=== PATIENT | male | born 1955 | race Two or more races ===

== ENCOUNTER → 2017-04-18 | Day surgery (SDC) | payer OTHER ==
[2017-04-18 13:05] VITALS: BP 165/96
== END ==
LOC: SDC 11:58
DX: Z53.9 Procedure and treatment not carried out, unspecified reason (principal)

== ENCOUNTER 2017-06-10 07:23 | Day surgery (SDC) | payer OTHER ==
--- NOTE | 2017-06-10 09:22 | Operative Note ---
Colonoscopy (Jody) Procedure date: 06/10/17 Date of : 53 Procedure:Colonoscopy Colonoscopy with cold snare polypectomy Indications: Mr. Smith is a 61-year-old gentleman who is here for follow-up screening colonoscopy. The patient did have a colonoscopy in February 2011 at which time for colon polyps (tubular adenomas 4) were removed. He reports no abdominal pain, weight loss, change in bowel habits or rectal bleeding. He reports no family history of colon cancer. Performing Provider: Benjamin Vera MD Referrring Provider: Brendan Moody M.D. Sedation: Fentanyl 100 mg IV/Versed 5 mg IV Procedure: Prior to the procedure, a history and physical exam was performed, and patient medications and allergies were reviewed. The risks and benefits of the procedure and the sedation options and risks were discussed with the patient. All questions were answered and informed consent was obtained. Patient identification and proposed procedure were verified by the physician and the nurse. The patient was placed in a left lateral decubitus position. Throughout the procedure, the patient's blood pressure, pulse, and oxygen saturations were monitored continuously. Findings: On digital rectal examination there was normal rectal tone. There were no external hemorrhoids. The prostate was 2+, mildly firm but symmetric without nodules. The colonoscope was introduced through the anal canal to the rectum and advanced to the cecum. The ileocecal valve and appendiceal orifice were identified. The scope was advanced a short distance into the ileum which appeared grossly normal. The scope was then withdrawn into the colon. The cecum, ascending and transverse colon and mucosa were grossly normal. There were scattered diverticuli throughout the descending and sigmoid colon (LEFT colon). There was a single 6 mm polyp in the descending colon removed via cold snare polypectomy. The rectum itself was normal. Upon retroflexion within the rectum there were grade 1 internal hemorrhoids. Impressions: 1. Descending colon polyp 2. Mild left-sided diverticulosis 3. Grade 1 internal hemorrhoids Recommendations: I will follow up the polyp pathology and recommend repeat colonoscopy again in 5 years based upon the polyp histology. I would encourage fiber supplementation on a long-term daily maintenance basis. Complications: None EBL (ml): 0 at 0921
[2017-06-10 14:10] VITALS: BP 129/76
== END 2017-06-10 10:25 | disposition home or self-care (01) ==
LOC: SDC 07:23
PROVIDERS: Internal Medicine Gastroenterology
PROC: 0DBM8ZX Excision of Descending Colon, Via Natural or Artificial Opening Endoscopic, Diagnostic (ICD-10-PCS; principal; 2017-06-10 08:30)
DX: Z12.11 Encounter for screening for malignant neoplasm of colon (principal); K63.5 Polyp of colon; K57.30 Diverticulosis of large intestine without perforation or abscess without bleeding; K64.0 First degree hemorrhoids